=== PATIENT | female | born 1935 | race Hispanic/Latino ===

== ENCOUNTER → 2017-07-31 | Outpatient (CLI) | payer MEDICARE | END | disposition home or self-care (01) | LOC: RAH 11:31 | PROVIDERS: ATTEND Family Medicine | DX: S20.219A Contusion of unspecified front wall of thorax, initial encounter (principal); W19.XXXA Unspecified fall, initial encounter; Y93.89 Activity, other specified; Y92.89 Other specified places as the place of occurrence of the external cause; Y99.8 Other external cause status | CPT/HCPCS: 71120 ==

== ENCOUNTER 2019-06-27 07:16 | Day surgery (SDC) | payer OTHER, MEDICARE ==
[~2019-06-27 07:16] MED LIST: SODIUM CHLORIDE 0.9% 1000ML 1,000 ML IV ONE
[2019-06-27 08:51] VITALS: BP 171/67
[2019-06-27] MEDS ORDERED: ergocalciferol (09:18)
[2019-06-27] MEDS ORDERED: LISI-613 PO (09:18)
[2019-06-27] MEDS ORDERED: FENO160T16 PO (09:18)
[2019-06-27] MEDS ORDERED: MONT10TA26 PO (09:18)
[2019-06-27] MEDS ORDERED: AMLO5TAB9 PO (09:18)
[2019-06-27] MEDS ORDERED: ACET160S2 PO (09:18)
[2019-06-27] MEDS ORDERED: MEMA10TA55 PO (09:18)
[2019-06-27] MEDS ORDERED: SERT50TA12 PO (09:18)
[2019-06-27] MEDS ORDERED: ASPI-1026 PO (09:18)
[2019-06-27] MEDS ORDERED: CLOP75TA32 PO (09:18)
[2019-06-27] MEDS ORDERED: DONE10TA8 PO (09:18)
[2019-06-27] MEDS ORDERED: ALEN70SO3 PO (09:18)
[2019-06-27] MEDS ORDERED: SIMV-43 PO (09:18)
[2019-06-27] MEDS ORDERED: multivitamin (09:18)
[2019-06-27] MEDS ORDERED: PROPOFOL 10 MG/ML 20ML VIAL IV ONE ×2 (09:51)
[2019-06-27 10:19] VITALS: BP 123/61
[2019-06-27 10:25] VITALS: BP 140/58
[2019-06-27 10:30] VITALS: BP 142/60
[2019-06-27 10:35] VITALS: BP 146/61
[2019-06-27 10:40] VITALS: BP 164/68
== END 2019-06-27 11:05 | disposition home or self-care (01) ==
LOC: ENDO 07:16
PROVIDERS: ATTEND Internal Medicine Gastroenterology
DX: K62.5 Hemorrhage of anus and rectum (principal); R13.10 Dysphagia, unspecified; K29.50 Unspecified chronic gastritis without bleeding; B96.81 Helicobacter pylori [H. pylori] as the cause of diseases classified elsewhere; M81.0 Age-related osteoporosis without current pathological fracture; F32.9 Major depressive disorder, single episode, unspecified; I10 Essential (primary) hypertension; E78.5 Hyperlipidemia, unspecified; F02.80 Dementia in other diseases classified elsewhere, unspecified severity, without behavioral disturbance, psychotic disturbance, mood disturbance, and anxiety; E03.9 Hypothyroidism, unspecified; Z79.899 Other long term (current) drug therapy
CPT/HCPCS: 43239; 45378; 88305; 88313; 88342; A4215; A4221; A4222; A4223; A4606; A4620; A4663; J2704 ×2; J7030